=== PATIENT | male | born 1980 | race Caucasian/White ===

== ENCOUNTER → 2022-04-03 15:04 | Outpatient (BNVA) | payer MEDICARE, SELFPAY | PROVIDERS: PCP Internal Medicine; Visit Provider Hospitalist | DX: U09.9 Post COVID-19 condition, unspecified (principal); J96.10 Chronic respiratory failure, unspecified whether with hypoxia or hypercapnia; G47.33 Obstructive sleep apnea (adult) (pediatric); M79.89 Other specified soft tissue disorders | CPT/HCPCS: 94618; 99202 ==

== ENCOUNTER 2022-05-11 15:02 | Outpatient (REF) | payer OTHER, SELFPAY ==
--- NOTE | 2022-05-11 17:27 | PFT_ITS ---
INDICATION: Post COVID syndrome. SPIROMETRY: FEV1 to FVC 97% with an FEV1 of 1.36 L, which is 34% predicted. An FVC of 1.39 L, which is 27% predicted. No significant response to bronchodilators noted. Maximum voluntary ventilation 29% predicted. LUNG VOLUMES: Total lung capacity 29% predicted with an expiratory reserve volume of 15% predicted. DIFFUSION CAPACITY: DLCO 31% predicted. COMPARISONS: None. INTERPRETATION: There is no obstructive ventilatory defect, no significant response to bronchodilators noted. Severe decrease in the maximum voluntary ventilation secondary to likely deconditioning, although neuromuscular conditions cannot be ruled out specially after prolonged hospitalization. Lung volumes also demonstrate a restrictive ventilatory defect consistent with severe restrictive lung disease. Partly could be secondary to neuromuscular disease after prolonged hospitalization although parenchymal lung conditions cannot be ruled out. The patient also has a decrease in the expiratory reserve volume suggesting a component of elevation in the BMI. In addition to that, there is a severe diffusion impairment that does correct to 99% predicted when correcting for the alveolar volume suggesting that his intrinsic pulmonary function is intact. Although, the patient has a hard time expanding his lungs, making it more likely that is more of a neuromuscular component than a parenchymal component. Clinical correlation warranted. MD MARVIN Reynolds/YANIRA / [id number]
== END 2022-05-11 15:03 | disposition home or self-care (01) ==
LOC: HO.RESP 15:02
PROVIDERS: PCP Internal Medicine; Visit Provider Internal Medicine Pulmonary Disease
DX: G47.33 Obstructive sleep apnea (adult) (pediatric) (principal); J96.10 Chronic respiratory failure, unspecified whether with hypoxia or hypercapnia; U09.9 Post COVID-19 condition, unspecified; M79.89 Other specified soft tissue disorders
CPT/HCPCS: 94060; 94727; 94729

== ENCOUNTER → 2022-05-28 20:30 | Outpatient (REF) | payer OTHER, SELFPAY | LOC: HO.SL 20:30 | PROVIDERS: Visit Provider Hospitalist | DX: G47.33 Obstructive sleep apnea (adult) (pediatric) (principal) | CPT/HCPCS: 95810 ==